=== PATIENT | male | born 1990 | race American Indian/Alaskan Native ===

== ENCOUNTER 2019-05-16 09:35 | Emergency (ER) | payer SELFPAY ==
[2019-05-16 09:43] VITALS: BP 126/82
[2019-05-16] MEDS ORDERED: ROCEPHIN IM ONE (10:56)
[2019-05-16] MEDS ORDERED: XYLOCAINE 1% MPF 5 mL INFILTRATI ONE (10:56)
[2019-05-16] MEDS ORDERED: ZITHROMAX PO ONE (11:01)
--- NOTE | 2019-05-16 11:06 | Emergency Department Report ---
ED Male HPI - General Chief complaint: Urogenital-Male Stated complaint: BURNING WHEN URINATING/DISCHARGE Time Seen by Provider: 05/16/19 10:53 Source: patient Mode of arrival: Ambulatory Limitations: No Limitations - History of Present Illness Initial comments: Patient is 29 years old male with no significant past medical history. Patient presented to the ER complaining of penile discharge for the last 2 weeks. Patient stated that he also has some burning sensation related to the bathroom for urination. Patient stated that he had the same symptoms 2 months ago and he was treated but he has sex with the same partner that he had before and symptoms came back. Patient denies any fever or chills. No other complaint. MD Complaint: penile discharge, dysuria -: days(s) Location: penis Severity: moderate Worsens with: urination - Related Data Allergies Allergy/AdvReac Type Severity Reaction Status Date / Time No Known Allergies Allergy Verified 05/16/19 09:38 ED Review of Systems ROS: Stated complaint: BURNING WHEN URINATING/DISCHARGE Other details as noted in HPI Comment: All other systems reviewed and negative Constitutional: denies: chills, fever Respiratory: denies: cough, shortness of breath, SOB with exertion Cardiovascular: denies: chest pain Gastrointestinal: denies: abdominal pain Genitourinary: discharge. denies: testicular pain, testicular mass ED Past Medical Hx - Past Medical History Previous Medical History?: No - Surgical History Past Surgical History?: Yes Additional Surgical History: left wrist - Social History Smoking Status: Never Smoker Substance Use Type: None ED Physical Exam - General Limitations: No Limitations General appearance: alert, in no apparent distress - Head Head exam: Present: atraumatic, normocephalic, normal inspection - Eye Eye exam: Present: normal appearance, PERRL - ENT ENT exam: Present: normal exam, normal orophraynx, mucous membranes moist - Neck Neck exam: Present: normal inspection, full ROM. Absent: tenderness, meningismus, lymphadenopathy, thyromegaly - Respiratory Respiratory exam: Present: normal lung sounds bilaterally - Cardiovascular Cardiovascular Exam: Present: regular rate, normal rhythm, normal heart sounds - GI/Abdominal GI/Abdominal exam: Present: soft, normal bowel sounds. Absent: distended, tenderness, guarding, rebound, rigid, organomegaly, mass, bruit, pulsatile mass, hernia - exam: Present: normal inspection, urethral discharge. Absent: testicular tenderness, scrotal swelling - Extremities Exam Extremities exam: Present: normal inspection - Back Exam Back exam: Present: normal inspection, full ROM. Absent: tenderness, CVA tenderness (R), CVA tenderness (L), muscle spasm, paraspinal tenderness, vertebral tenderness - Neurological Exam Neurological exam: Present: alert, oriented X3, normal gait, reflexes normal - Skin Skin exam: Present: warm, intact, normal color ED Course Vital Signs 05/16/19 09:41 Temperature 98.4 F Pulse Rate 79 Respiratory 16 Rate Blood Pressure 126/82 [Left] O2 Sat by Pulse 97 Oximetry ED Medical Decision Making - Medical Decision Making Patient received Rocephin 250 mg IM and Zithromax 1 g by mouth. Patient also given a prescription for doxycycline 100 mg twice a day for 7 days. Patient is strongly advised to talk to his girlfriend for a test and a test of cure for having sex. A GC chlamydia urine test is order result is pending. Critical care attestation.: If time is entered above; I have spent that time in minutes in the direct care of this critically ill patient, excluding procedure time. ED Disposition Clinical Impression: Penile discharge, STD (male) Disposition: -01 TO HOME OR SELFCARE Is pt being admited?: No Condition: Stable Instructions: Safe Sex (ED), Sexually Transmitted Diseases (ED) Referrals: [facility] [Provider Group] - 3-5 Days
[2019-05-16 12:10] LABS: Bilirubin,Urine NEG (Negative); Blood,Urine NEG (Negative); Color,Urine Yellow (Yellow); Mucus,Urine FEW /HPF; Protein,Urine <15 mg/dL mg/dL (Negative); Urobilinogen,Urine < 2.0 mg/dL (<2.0)
== END 2019-05-16 11:36 | disposition home or self-care (01) ==
LOC: ED 09:35
DX: Z20.2 Contact with and (suspected) exposure to infections with a predominantly sexual mode of transmission (principal); R36.9 Urethral discharge, unspecified
CPT/HCPCS: 81001; 87591; 96372; 99283; J0696

== ENCOUNTER 2020-05-14 11:57 | Emergency (ER) | payer SELFPAY ==
[2020-05-14 12:21] VITALS: BP 126/84
--- NOTE | 2020-05-14 13:19 | Emergency Department Report ---
Chief Complaint: Urogenital-Male Stated Complaint: DISCHARGE Time Seen by Provider: 05/14/20 12:51 - HPI History of Present Illness: 30-year-old -[place] male patient without significant past medical history presents with complaints of penile discharge x2 weeks. He denies any dysuria/hematuria, penile/testicular pain/swelling/lesions, joint pain/swelling, throat pain, fever/chills/sweats, or abdominal pain. He states he is concerned for an STD and would like to be checked - Exam Vital Signs: Vital Signs 05/14/20 12:21 Temperature 98.4 F Pulse Rate 76 Respiratory 16 Rate Blood Pressure 126/84 [Right] O2 Sat by Pulse 98 Oximetry MSE screening note: Focused history and physical exam performed. Due to findings the following was ordered: ED Medical Decision Making - Medical Decision Making 30-year-old -[place] male patient without significant past medical history presents with complaints of penile discharge x2 weeks. He denies any dysuria/hematuria, penile/testicular pain/swelling/lesions, joint pain/swelling, throat pain, fever/chills/sweats, or abdominal pain. He states he is concerned for an STD and would like to be checked Patient denies any red flag symptoms and his vitals are normal. He is well- appearing on exam without abdominal pain. Recommend patient follow-up outpatient for evaluation and treatment of possible STI. Patient given referral for PCP, the health department, and a list of healthcare facilities that are able to evaluate and treat him. He is well-appearing and stable for discharge home. Strict return precautions were discussed in detail with patient who verbalizes understanding. ED Disposition for MSE Clinical Impression: Concern about STD in male without diagnosis Disposition: DC-01 TO HOME OR SELFCARE Is pt being admited?: No Condition: Stable Instructions: Sexually Transmitted Diseases (ED) Referrals: NISH GONZALEZ MD [Staff Physician] - 2-3 Days ED Physical Exam - General Limitations: No Limitations General appearance: alert, in no apparent distress - Head Head exam: Present: atraumatic, normocephalic - Eye Eye exam: Present: normal appearance. Absent: scleral icterus - Respiratory Respiratory exam: Present: normal lung sounds bilaterally. Absent: respiratory distress - Cardiovascular Cardiovascular Exam: Present: regular rate, normal rhythm. Absent: systolic murmur, diastolic murmur, rubs, gallop - GI/Abdominal GI/Abdominal exam: Present: soft. Absent: distended, tenderness, guarding, rebound, rigid - Rectal Rectal exam: Present: deferred - Back Exam Back exam: Present: normal inspection - Neurological Exam Neurological exam: Present: alert, oriented X3 - Psychiatric Psychiatric exam: Present: normal affect, normal mood - Skin Skin exam: Present: warm, dry, intact, normal color. Absent: rash ED Review of Systems ROS: Stated complaint: DISCHARGE Other details as noted in HPI Constitutional: denies: chills, diaphoresis, fever, malaise, weakness Respiratory: denies: shortness of breath Gastrointestinal: denies: abdominal pain, nausea, vomiting Genitourinary: discharge. denies: urgency, dysuria, frequency, hematuria, test icular pain, testicular mass Musculoskeletal: denies: joint swelling, arthralgia Skin: denies: lesions, change in color
== END 2020-05-14 13:01 | disposition left against medical advice (07) ==
LOC: ED 11:57
DX: Z20.2 Contact with and (suspected) exposure to infections with a predominantly sexual mode of transmission (principal)
CPT/HCPCS: 99281